=== PATIENT | male | born 1970 | race Two or more races ===

== ENCOUNTER 2017-06-12 13:18 | Emergency (ER) | payer MEDICAID ==
[~2017-06-12] VITALS: Ht 167.6 cm; Wt 68.0 kg
[2017-06-12 13:55] VITALS: BP 117/67
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
[2017-06-12] MEDS ORDERED: GUAIFENESIN1200 MG PO (15:05)
[2017-06-12] MEDS ORDERED: PROMETHAZINE-C118 M1 ORAL (15:05)
[2017-06-12] MEDS ORDERED: TYLENOL EXTRA500 MG ORAL (15:05)
[2017-06-12] MEDS ORDERED: BENTYL10 MG ORAL (15:05)
== END 2017-06-12 15:00 | disposition home or self-care (01) ==
LOC: EMR 14:30
DX: J06.9 Acute upper respiratory infection, unspecified (principal); R19.7 Diarrhea, unspecified; R05 Cough; J02.9 Acute pharyngitis, unspecified; R09.81 Nasal congestion; R51 Headache
CPT/HCPCS: 99283